=== PATIENT | male | born 1955 | race Caucasian/White ===

== ENCOUNTER 2018-07-13 08:58 | Day surgery (SDC) | payer MEDICARE ==
[~2018-07-13] VITALS: Ht 177.8 cm; Wt 92.5 kg
[~2018-07-13 08:58] MED LIST: DICY20TA11 PO; DULO1CAP2 PO; LEVO125T4 PO; META28.32 PO; METF500T13 PO; SIMV40TA2 PO
[2018-07-13] MEDS ORDERED: NS 1,000 ML IV ONE (10:45)
[2018-07-13] MEDS ORDERED: fentaNYL 100 MCG/2 ML INJECTION (J3010) As Ordered ONE (10:58)
[2018-07-13] MEDS ORDERED: LIDOCAINE 2% INJ 100 MG/5 ML SDV (FOR ANES.) As Ordered ONE (10:58)
[2018-07-13] MEDS ORDERED: PROPOFOL 500 MG/50 ML VIAL As Ordered ONE (10:58)
--- NOTE | 2018-07-13 11:12 | ROOR ---
Patient Name: Hayden Zelaya Procedure Date: 07/13/2018 10:47 AM Date of : 1955 Age: 63 Room: [facility] Gender: Male Note Status: Finalized Procedure: Upper GI endoscopy Indications: Abdominal pain in the left upper quadrant Providers: Nathan WOODWARD MD Referring MD: Arlene Dean Md Requesting Provider: Medicines: Monitored Anesthesia Care Complications: No immediate complications. Procedure: Pre-Anesthesia Assessment: - The heart rate, respiratory rate, oxygen saturations, blood pressure, adequacy of pulmonary ventilation, and response to care were monitored throughout the procedure. The Endoscope was introduced through the mouth, and advanced to the second part of duodenum. The upper GI endoscopy was accomplished without difficulty. The patient tolerated the procedure well. Findings: Moderately severe esophagitis was found in the lower third of the esophagus. Biopsies were taken with a cold forceps for histology. The Z-line was variable and was found in the lower third of the esophagus. Mild inflammation was found in the gastric antrum. Biopsies were taken with a cold forceps for histology. The examined duodenum was normal. Impression: - Z-line variable, at 36 cm with moderate reflux esophagitis. Biopsied. - Mild gastritis. Biopsied. - Normal examined duodenum. Recommendation: - Use Prilosec (omeprazole) 40 mg PO daily for 3 months. - Telephone endoscopist for pathology results in 2 weeks. - If applicable, reduce NSAIDS/Motrin/Ibuprofen/Naprosyn. Use Tylenol instead. - (the script was sent to your pharmacy on file) Nathan Woodward MD Nathan WOODWARD MD 07/13/2018 11:11:49 AM This report has been signed electronically. Number of Addenda: 0 Note Initiated On: 07/13/2018 10:47 AM Estimated Blood Loss: Estimated blood loss: none.
--- NOTE | 2018-07-13 11:32 | ROOR ---
Patient Name: Hayden Zelaya Procedure Date: 07/13/2018 10:56 AM Date of : 1955 Age: 63 Room: [facility] Gender: Male Note Status: Finalized Procedure: Colonoscopy Indications: Screening for colorectal malignant neoplasm Providers: Nathan WOODWARD MD Referring MD: Arlene Dean Md Requesting Provider: Medicines: Monitored Anesthesia Care Complications: No immediate complications. Procedure: Pre-Anesthesia Assessment: - The heart rate, respiratory rate, oxygen saturations, blood pressure, adequacy of pulmonary ventilation, and response to care were monitored throughout the procedure. The Colonoscope was introduced through the anus and advanced to the cecum, identified by appendiceal orifice and ileocecal valve. The colonoscopy was performed without difficulty. The patient tolerated the procedure well. The quality of the bowel preparation was good. Findings: The perianal and digital rectal examinations were normal. One medium-mouthed diverticulum was found in the splenic flexure. Ange-diverticular erythema was seen. This was biopsied with a cold forceps for histology. Multiple small-mouthed diverticula were found in the sigmoid colon. The exam was otherwise without abnormality on direct and retroflexion views. Impression: - Single diverticulum with surrounding erythema at the splenic flexure. Ange-diverticular erythema was seen. Biopsied. - Multiple small diverticula in the sigmoid colon. - The examination was otherwise normal on direct and retroflexion views. Recommendation: - Telephone endoscopist for pathology results in 2 weeks. - Repeat colonoscopy in 10 years for screening purposes. Nathan Woodward MD Nathan WOODWARD MD 07/13/2018 11:32:01 AM This report has been signed electronically. Number of Addenda: 0 Note Initiated On: 07/13/2018 10:56 AM Estimated Blood Loss: Estimated blood loss: none.
[2018-07-13 11:50] VITALS: BP 120/73
== END 2018-07-13 12:04 | disposition home or self-care (01) ==
LOC: M OPP 08:58
PROVIDERS: ATTEND Internal Medicine Gastroenterology
DX: Z12.11 Encounter for screening for malignant neoplasm of colon (principal); R10.12 Left upper quadrant pain; R12 Heartburn; K57.30 Diverticulosis of large intestine without perforation or abscess without bleeding; K22.8 Other specified diseases of esophagus; K21.0 Gastro-esophageal reflux disease with esophagitis; K29.70 Gastritis, unspecified, without bleeding; E11.9 Type 2 diabetes mellitus without complications; E03.9 Hypothyroidism, unspecified; E78.00 Pure hypercholesterolemia, unspecified; F41.9 Anxiety disorder, unspecified; R42 Dizziness and giddiness; I49.5 Sick sinus syndrome; Z95.0 Presence of cardiac pacemaker; Z79.84 Long term (current) use of oral hypoglycemic drugs; Z79.899 Other long term (current) drug therapy; Z88.5 Allergy status to narcotic agent
CPT/HCPCS: 43239; 45380; 88305; J3010